=== PATIENT | male | born 1960 | race Caucasian/White ===

== ENCOUNTER 2020-12-19 13:59 | Outpatient (REF) | payer OTHER, SELFPAY | END 2020-12-19 14:00 | disposition home or self-care (01) | LOC: HO.LNP 13:59 | PROVIDERS: Visit Provider Family Medicine | DX: R06.02 Shortness of breath (principal); Z20.822 Contact with and (suspected) exposure to COVID-19 | CPT/HCPCS: U0003; U0005 ==

== ENCOUNTER → 2022-06-10 08:25 | Outpatient (BNVA) | payer OTHER, SELFPAY | PROVIDERS: PCP Family Medicine; Visit Provider Nurse Practitioner Family | DX: Z13.89 Encounter for screening for other disorder (principal) ==

== ENCOUNTER → 2022-07-09 14:37 | Outpatient (REF) | payer OTHER, SELFPAY | LOC: HO.SL 14:37 | PROVIDERS: Visit Provider Nurse Practitioner Family | DX: G47.33 Obstructive sleep apnea (adult) (pediatric) (principal); R06.83 Snoring; Z99.89 Dependence on other enabling machines and devices | CPT/HCPCS: 95806 ==

== ENCOUNTER → 2022-10-07 09:30 | Outpatient (BNVA) | payer OTHER, SELFPAY | PROVIDERS: PCP Family Medicine; Visit Provider Nurse Practitioner Family ==

== ENCOUNTER 2022-12-15 09:20 | Outpatient (AMB) | payer OTHER, SELFPAY ==
[2022-12-15 09:24] VITALS: BP 130/72; PULSE 130; TEMP 36.7; BMI 30.9
--- NOTE | 2022-12-15 09:24 | MHC.OFFWIV ---
Intake Vital Signs 12/15/22 09:24 Height 5 ft 7 in Weight 197 lb 4 oz BMI 30.9 BP 130/72 Blood Pressure Location Lt brachial Position Sitting Pulse 130 H Pulse Source Pulse Oximeter Temp 98.1 F Temp Source Oral Intake Visit Reasons: cough, congestion Intake Note: Patient is here with symptoms of bronchitis since Thursday, took 2 Covid tests, both were negative. Patient Tobacco Use Status: Never used Tobacco Allergies No Known Allergies Allergy (Verified 12/15/22 09:27) Do you need a note to return to daycare/school/sports/work: Yes PFSH Surgical History History of back surgery History of hip surgery Family History Father Cancer Mother COPD (chronic obstructive pulmonary disease) Sister Breast cancer Son Testicular cancer Social History (Updated 06/10/22 @ 08:45 by PAO Reza) Alcohol intake: never Patient Tobacco Use Status: Never used Tobacco Physical Exam Vital Signs: Last Vital Signs Temp 98.1 F 12/15/22 09:24 Pulse 130 H 12/15/22 09:24 BP 130/72 12/15/22 09:24 BMI result Body Mass Index 30.9 Results AMB Rapid Strep AMB Rapid Strep Negative Last Edit by Katerina Day CMA on 12/15/22 09:57 Assessment & Plan Assessment & Plan (1) Cough: Code(s): R05.9 - Cough, unspecified Plan: Patient with a history of asthma presenting with cough sore throat and nasal congestion Enlarged tonsils and patchy exudates in posterior pharynx which can be suspicious for strep though cough is off in exclusive of this Rapid strep negative Likely viral illness and will send testing for COVID/flu/RSV Concerned that this has progressed to a sinus infection so will start him on a Z-Romeo Patient has asthma so will also give him a prednisone taper Continue inhaled medications Will have him stay out of work with a note pending test results. (2) Nasal congestion: Code(s): R09.81 - Nasal congestion Plan: As above (3) Pharyngitis: Code(s): J02.9 - Acute pharyngitis, unspecified Plan: As above Orders: Orders AMB Rapid Strep Screen Today J02.9 - Acute pharyngitis, unspecified, R05.9 - Cough, unspecified, R09.81 - Nasal congestion Medications: New azithromycin (Zithromax Z-Romeo) take 500 mg today (day 1), then 250 mg for 4 days (days 2-5) PO 6 tabs 0RF 5 days prednisone 4 tabs daily for 4 days, 3 tabs daily for 2 days, 2 tabs daily for 2 days, 1 tab daily for 2 days PO daily; 28 tabs 0RF 10 days Coding Level of Care Code Est Pt Level 3 (04924) Diagnoses Cough R05.9 Nasal congestion R09.81 Pharyngitis J02.9
== END 2022-12-15 09:59 | disposition home or self-care (01) ==
PROVIDERS: PCP Family Medicine; Visit Provider Family Medicine
DX: R05.9 Cough, unspecified (principal); R09.81 Nasal congestion; J02.9 Acute pharyngitis, unspecified
CPT/HCPCS: 87880; 99213

== ENCOUNTER 2022-12-15 12:15 | Outpatient (REF) | payer OTHER, SELFPAY ==
[2022-12-15 13:10] LABS: Influenza A PCR NEGATIVE (Negative); Influenza B PCR NEGATIVE (Negative); Resp Syncy Virus RNA Qual PCR NEGATIVE (Negative); SARS COV2 PCR INHOUSE NEGATIVE (Negative)
== END 2022-12-15 12:16 | disposition home or self-care (01) ==
LOC: HO.LNP 12:15
PROVIDERS: Visit Provider Family Medicine
DX: Z20.822 Contact with and (suspected) exposure to COVID-19 (principal); R09.89 Other specified symptoms and signs involving the circulatory and respiratory systems
CPT/HCPCS: 0241U

== ENCOUNTER 2023-06-19 11:20 | Outpatient (AMB) | payer OTHER, SELFPAY ==
--- NOTE | 2023-06-19 11:33 | MHC.OFFVIS ---
Intake Vital Signs 06/19/23 11:37 Height 5 ft 7 in Weight 206 lb 4 oz BMI 32.3 BP 124/70 Blood Pressure Location Lt brachial Position Sitting Pulse 75 Pulse Source Pulse Oximeter Pulse Oximetry (%) 96 Oxygen Delivery Method Room Air Intake Visit Reasons: f/u appt for after CPAP - CONF Intake Note: Patient presents for f/u. Allergies No Known Allergies Allergy (Verified 06/19/23 11:36) HPI HPI Comments History of Present Illness Details 61 y/o male patient presents for follow up of home sleep study. The home sleep result was significant for mild degree of sleep apnea. The AHI was 7/hr and oxygen augustus was 81%. Pt had received a new CPAP. He sleeps well with CPAP, rested and daytime tiredness has improved with using CPAP. The compliance and therapy response report (03/21/23-06/18/23) reviewed with the patient. He is currently on APAP 5-15 cmH2O. The usage days 99% and the average usage hours 7 hours 33 min. The max pressure is 12.4 and the residual AHI was 1.9/hr [facility] Surgical History History of hip surgery History of back surgery Family History Father Cancer Mother COPD (chronic obstructive pulmonary disease) Sister Breast cancer Son Testicular cancer Social History Alcohol intake: never Patient Tobacco Use Status: Never used Tobacco Review of Systems Const All systems reviewed & are unremarkable except as noted in HPI and below ENT Reports Normal hearing present Neuro Reports Normal hearing present Physical Exam Vital Signs: Last Vital Signs Pulse 75 06/19/23 11:37 BP 124/70 06/19/23 11:37 Pulse Ox 96 06/19/23 11:37 Oxygen Delivery Method Room Air 06/19/23 11:37 BMI result Body Mass Index 32.3 Const General: cooperative Nutritional Appearance: obese Orientation/consciousness: patient oriented x3 Neck Other: Bilateral neck muscle tightness. Neck: Yes full ROM and Yes supple Resp Effort & Inspection: normal respiratory effort and able to speak in complete sentences Neuro General: patient oriented x3, gait normal, moves all extremities and no focal motor deficits Cranial nerves: Yes Bilaterally intact EOM present, Yes Normal facial strength present, Yes Midline tongue present, Yes Symmetric palate elevation present, Yes Normal hearing present, Yes Ability to bilaterally rotate head present and Yes Ability to bilaterally elevate shoulders present Cognition (Neuro): normal cognition Gait exam (Neuro): Normal gait present Motor exam (neuro): Pronator motor function not present and no tremor noted Psych Appearance: grossly normal Mental Status: mental status grossly normal Speech and movement: Normal speech and movement present Affect: normal affect Assessment & Plan Assessment & Plan (1) AYSHA on CPAP: Code(s): G47.33 - Obstructive sleep apnea (adult) (pediatric); Z99.89 - Dependence on other enabling machines and devices (2) Snoring: Code(s): R06.83 - Snoring Plan Advised patient to continue to use APAP 5-15 cmH2O as patient experiences good clinical effects, less snoring, sleep quality has improved, and daytime sleepiness resolved. Stressed compliance, use CPAP nighlty and more than 4 hrs. Wt reduction advised. Coding Level of Care Code Est Pt Level 3 (64202) Diagnoses AYSHA on CPAP G47.33; Z99.89 Snoring R06.83
[2023-06-19 11:37] VITALS: BP 124/70; PULSE 75; O2SAT 96; BMI 32.3
== END 2023-06-19 11:52 | disposition home or self-care (01) ==
PROVIDERS: PCP Family Medicine; Visit Provider Nurse Practitioner Family
DX: G47.33 Obstructive sleep apnea (adult) (pediatric) (principal); Z99.89 Dependence on other enabling machines and devices; R06.83 Snoring
CPT/HCPCS: 99213

== ENCOUNTER → 2023-06-19 11:20 | Outpatient (BNVA) | payer OTHER, SELFPAY | PROVIDERS: PCP Family Medicine; Visit Provider Nurse Practitioner Family ==

== ENCOUNTER 2024-06-21 13:02 | Outpatient (AMB) | payer OTHER, SELFPAY ==
[2024-06-21 13:05] VITALS: BP 110/80; PULSE 78; O2SAT 97; BMI 31.3
--- NOTE | 2024-06-21 13:05 | MHC.OFFVIS ---
Vital Signs 06/21/24 13:05 Height 5 ft 7 in Weight 200 lb BMI 31.3 BP 110/80 Blood Pressure Location Rt brachial Position Sitting Pulse 78 Pulse Source Pulse Oximeter Pulse Oximetry (%) 97 Oxygen Delivery Method Room Air Intake Visit Reasons: f/u appt for after CPAP Securities Analyst Required: No Accompanied by: Self / Same As Patient Allergies No Known Allergies Allergy (Verified 06/21/24 13:06) HPI Comments Details: 63 y/o male patient presents for follow up of AYSHA. 07/09/2022 home sleep study showed mild degree of sleep apnea with AHI 7/hr and oxygen augustus was 81%. Previous in-lab sleep study showed moderate obstructive sleep apnea with AHI of 23 per hour, REM AHI 27 per hour, average SpO2 90 5% with O2 augustus 81%. Pt continues to sleep better with his CPAP machine. He uses his CPAP machine regularly, may miss a night here there due to his work schedule. He does clean his CPAP supplies routinely He does use on distilled water in CPAP water reservoir He has a history of benign muscle fasciculations, for which he is followed by neuromuscular specialist at [facility]. He also states that his RLE cramps are attributed to history of low back issues. He states he needs to have bilateral total knee replacement- as his knee pain has been worsening, makes it difficult to walk up stairs at this point. He is followed by [facility]- and plans to make an appointment to discuss. He states he has random episodes of muscle twitching and cramps, which he manages with clonazepam and gabapentin. The symptoms can make him anxious, worried about potential for a neurodegenerative disease- though he knows this is most likely not the case. [facility] [address] [facility], [address] Phone: Old Usage days 28/30 days (93%) >= 4 hours 22 days (73%) < 4 hours 6 days (20%) Usage hours 174 hours 42 minutes Average usage (total days) 5 hours 49 minutes Average usage (days used) 6 hours 14 minutes Median usage (days used) 7 hours 7 minutes Total used hours (value since last reset - 06/20/2024) 3,196 hours AirSense 11 AutoSet Serial number [id number] Mode AutoSet Min Pressure 5 cmH2O Max Pressure 15 cmH2O EPR Off Response Soft Therapy Pressure - cmH2O Median: 7.4 95th percentile: 10.3 Maximum: 11.3 Leaks - L/min Median: 0.0 95th percentile: 3.4 Maximum: 16.8 Events per hour AI: 0.4 HI: 0.3 AHI: 0.7 PFSH Surgical History History of hip surgery History of back surgery Family History Father Cancer Mother COPD (chronic obstructive pulmonary disease) Sister Breast cancer Son Testicular cancer Social History Alcohol intake: never Patient Tobacco Use Status: Never used Tobacco Physical Exam Vital Signs: Last Vital Signs Pulse 78 06/21/24 13:05 BP 110/80 06/21/24 13:05 Pulse Ox 97 06/21/24 13:05 Oxygen Delivery Method Room Air 06/21/24 13:05 BMI result Body Mass Index 31.3 Const General: cooperative and no acute distress Orientation/consciousness: patient oriented x3 Resp Effort & Inspection: normal respiratory effort and able to speak in complete sentences Neuro General: patient oriented x3 Cranial nerves: Yes CN's II-XII intact bilaterally Cognition (Neuro): normal cognition Psych Appearance: grossly normal Mental Status: mental status grossly normal Speech and movement: Normal speech and movement present Affect: normal affect Attitude: cooperative Assessment & Plan Assessment & Plan (1) AYSHA on CPAP: Code(s): G47.33 - Obstructive sleep apnea (adult) (pediatric); Z99.89 - Dependence on other enabling machines and devices Category: Medical (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 Clean CPAP machine and supplies routinely. Change CPAP supplies routinely. Use distilled water in CPAP water reservoir. For nocturnal muscle fasciculation/cramps, he may benefit from trying with a blanket or an OTC RLS type cream. Pt to contact us or respiratory company with any questions or concerns or related CPAP machine . Pt to follow-up in 12 months or sooner prn. Coding Level of Care Code Est Pt Level 3 (06524) Diagnoses AYSHA on CPAP G47.33; Z99.89 Benign fasciculation-cramp syndrome R25.3
--- OUTSIDE RECORDS SUMMARY | 2024-06-21 13:58 | XMS_ITS | Data Portability ---
Author Organization [facility], Main Office Address [address] [facility] [address] [place] [id number] Assessment No assessment recorded. Plan of Treatment Reminders Order Date Submit Date Provider Last Modified By Organization Details Last Modified Time Details Appointments None recorde d. Lab copper, serum or plasma 2013 014 PRATIMA Not available 4 08:13:08 CBC w/ auto diff 2013 014 mdalessandro Not available 4 20:31:53 BMP, serum or plasma 2013 014 mdalessandro Not available 4 20:31:53 magnesi um, free, serum 2013 014 mdalessandro Not available 4 20:31:53 zinc, serum or plasma 2013 014 PRATIMA Not available 4 08:13:09 lead, blood 2013 014 PRATIMA Not available 4 08:11:16 vitamin B12, serum 2013 014 mdalessandro Not available 4 20:31:53 Referral pulmono logist referra l - hx benign cramp-f ascicul ation syndrom e, feeling of shortne ss of breath, o2 sat WNL, spirome try WNL, CXR pending . 2014 015 sridevi Cortez, [address] [place] [address] [place], [address], 5 13:27:26 Procedures None recorde d. Surgeries None recorde d. Imaging x-ray, chest, 2 view - shortne ss of breath, cough x 3 weeks 2014 015 [facility], [address], [place], [address], 5 09:30:42 Medication Orders None recorde d. Patient TargetsNo targets recorded. Patient Instructions Encounter Date Encounter Id Patient Instructions Last Modified By Organization Details Last Modified Time 03/28/2014 [id number] To call or return for worsening or concerns [email or web address] Not available 03/28/2014 16:26:42 Medications were reviewed at this visit and reconciled. Changes in the active medications are reflected in the current medication list and discussed with patient with instructions for follow up as needed. Printed medication list provided to the patient as part of the visit summary.I have reviewed the note and agree with the assessment and plan of care. johnnielessmarshallro Not available 03/28/2014 20:31:53 07/05/2014 [id number] [facility]rometry testing[facility] 07/06/2014 14:35:10 To call or return for worsening or concerns [email or web address] Not available 07/05/2014 11:29:55 Medications were reviewed at this visit and reconciled. Changes in the active medications are reflected in the current medication list and discussed with patient with instructions for follow up as needed. Printed medication list provided to the patient as part of the visit summary. I have reviewed the note and agree with the assessment and plan of care. 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 Referring Physician: Radha Alvarez, Family Medicine, Encounter Date: 07/05/2014 Results Created Date Observation Date Name Description Value Unit Range Abnormal Flag Note LastModifiedBy Organization Detail LastModifiedTime 07/06/19 15 07/05/2014 vern metry testi ng* Spirometry normal normal Not Available In-Offi ce Order Internal Use Only DO Not Attach Compendium DO Not Attach Compendium, Do Not Delete/merge, [id number] 07/05/2014 11:42:12 11/25/20 14 03/28/2014 CBC w/ auto diff WBC 8.8 K/mm3 (4.0-1 1.0) Not Available [facility] [address] [place], [address], 03/28/2014 19:43:34 03/28/20 14 03/28/2014 CBC w/ auto diff RBC 5.56 M/mm3 (4.70- 6.10) Not Available [facility] [address] [place], [address], 03/28/2014 19:43:34 03/28/20 14 03/28/2014 CBC w/ auto diff HGB 16.6 gm/dL (14.0- 18.0) Not Available [facility] [address] [place], [address], 03/28/2014 19:43:34 03/28/20 14 03/28/2014 CBC w/ auto diff HCT 47.1 % (42.0- 52.0) Not Available [facility] [address] [place], [address], 03/28/2014 19:43:34 03/28/20 14 03/28/2014 CBC w/ auto diff MCV 84.7 fL (80.0- 94.0) Not Available [facility] [address] [place], [address], 03/28/2014 19:43:34 03/28/20 14 03/28/2014 CBC w/ auto diff MCH 29.9 pg (27.0- 34.0) Not Available [facility] [address] [place], [address], 03/28/2014 19:43:34 03/28/20 14 03/28/2014 CBC w/ auto diff MCHC 35.2 % (33.0- 37.0) Not Available [facility] [address] [place], [address], 03/28/2014 19:43:34 03/28/20 14 03/28/2014 CBC w/ auto diff plt 203 K/mm3 (150-4 60) Not Available [facility] [address] [place], [address], 03/28/2014 19:43:34 03/28/20 14 03/28/2014 CBC w/ auto diff RDW-SD 39.4 fL (<47.0 ) Not Available [facility] [address] [place], [address], 03/28/2014 19:43:34 03/28/20 14 03/28/2014 CBC w/ auto diff MPV 12.0 fL (9.4-1 2.4) Not Available [facility] [address] [place], [address], 03/28/2014 19:43:34 03/28/20 14 03/28/2014 CBC w/ auto diff automated NRBC 0.0 #/100 _WBC' s Not Available [facility] [address] [place], [address], 03/28/2014 19:43:34 03/28/20 14 03/28/2014 CBC w/ auto diff abs. NRBC 0.0 K/mm3 Not Available [facility] [address] [place], [address], 03/28/2014 19:43:34 03/28/20 14 03/28/2014 CBC w/ auto diff neut # 4.9 K/mm3 (1.3-7 .0) Not Available [facility] [address] [place], [address], 03/28/2014 19:43:34 03/28/20 14 03/28/2014 CBC w/ auto diff lymph # 2.9 K/mm3 (0.8-3 .1) Not Available [facility] [address] [place], [address], 03/28/2014 19:43:34 03/28/20 14 03/28/2014 CBC w/ auto diff mono# 0.8 K/mm3 (0.4-1 .3) Not Available [facility] [address] [place], [address], 03/28/2014 19:43:34 03/28/20 14 03/28/2014 CBC w/ auto diff eo # 0.2 K/mm3 (0.0-0 .4) Not Available [facility] [address] Val[place], [address], 03/28/2014 19:43:34 03/28/20 14 03/28/2014 CBC w/ auto diff baso # 0.1 K/mm3 (0.0-0 .1) Not Available [facility] [address] [place], [address], 03/28/2014 19:43:34 03/28/20 14 03/28/2014 CBC w/ auto diff abs. imm gran 0.0 K/mm3 Not Available [facility] [address] [place], [address], 03/28/2014 19:43:34 03/28/20 14 03/28/2014 CBC w/ auto diff neut 55.0 % (44-76 ) Not Available [facility] [address] [place], [address], 03/28/2014 19:43:34 03/28/20 14 03/28/2014 CBC w/ auto diff lymph 32.7 % (15-43 ) Not Available [facility] [address] [place], [address], 03/28/2014 19:43:34 03/28/20 14 03/28/2014 CBC w/ auto diff monocyte 9.0 % (4.5-1 0.5) Not Available [facility] [address] [place], [address], 03/28/2014 19:43:34 03/28/20 14 03/28/2014 CBC w/ auto diff eo 2.4 % (0-6) Not Available [facility] [address] [place], [address], 03/28/2014 19:43:34 03/28/20 14 03/28/2014 CBC w/ auto diff baso 0.7 % (0-2) Not Available [facility] [address] [place], [address], 03/28/2014 19:43:34 03/28/20 14 03/28/2014 CBC w/ auto diff imm gran 0.2 % (0.0-0 .6) Not Available [facility] [address] [place], [address], 03/28/2014 19:43:34 03/28/20 14 03/28/2014 BMP, serum or plasm a glucose 79 mg/dL (70-99 ) Not Available [facility] [address] [place], [address], 03/28/2014 20:13:08 03/28/20 14 03/28/2014 BMP, serum or plasm a BUN 15 mg/dL (6-20) Not Available [facility] [address] [place], [address], 03/28/2014 20:13:08 03/28/20 14 03/28/2014 BMP, serum or plasm a creatinine 1.1 mg/dL (0.7-1 .2) Not Available [facility] [address] [place], [address], 03/28/2014 20:13:08 03/28/20 14 03/28/2014 BMP, serum or plasm a sodium 141 mmol/ L (133-1 45) Not Available [facility] [address] [place], [address], 03/28/2014 20:13:08 03/28/20 14 03/28/2014 BMP, serum or plasm a potassium 4.5 mmol/ L (3.6-5 .2) Not Available [facility] [address] [place], [address], 03/28/2014 20:13:08 03/28/20 14 03/28/2014 BMP, serum or plasm a chloride 102 mmol/ L (98-10 7) Not Available [facility] [address] [place], [address], 03/28/2014 20:13:08 03/28/20 14 03/28/2014 BMP, serum or plasm a bicarbonate 28 mmol/ L (22-29 ) Not Available [facility] [address] [place], [address], 03/28/2014 20:13:08 03/28/20 14 03/28/2014 BMP, serum or plasm a anion gap 11 (4-17) Not Available [facility] [address] [place] [place], [address], 03/28/2014 20:13:08 03/28/20 14 03/28/2014 BMP, serum or plasm a calcium 9.1 mg/dL (8.6-1 0.5) Not Available [facility] [address] [place], [address], 03/28/2014 20:13:08 03/28/20 14 03/28/2014 BMP, serum or plasm a est GFR non >60 mL/mi n/1.7 3_M2 THE MDRD STUDY 'S ESTIM ATED GFR EQUAT ION HAS NOT BEEN VALID ATED IN CHILD JAYY (<18 YRS), PREGN ANT WOMEN , THE ELDER LY (AGE >70 YRS), RACIA L OR ETHNI C SUBGR OUPS OTHER THAN CAUCA SIANS AND AFRIC AN AMERI CANS. Not Available [facility] [address] [place], [address], 03/28/2014 20:13:08 03/28/20 14 03/28/2014 BMP, serum or plasm a est GFR >60 mL/mi n/1.7 3_M2 THE MDRD STUDY 'S ESTIM ATED GFR EQUAT ION HAS NOT BEEN VALID ATED IN CHILD JAYY (<18 YRS), PREGN ANT WOMEN , THE ELDER LY (AGE >70 YRS), RACIA L OR ETHNI C SUBGR OUPS OTHER THAN CAUCA SIANS AND AFRIC AN AMERI CANS. Not Available [facility] [address] [place], [address], 03/28/2014 20:13:08 03/28/20 14 03/28/2014 magne sium, serum or plasm a magnesium 1.6 mEq/L (1.3-1 .9) Not Available [facility] [address] [place], [address], 03/28/2014 20:13:09 03/28/20 14 03/28/2014 vitam in B12, serum vitamin B12 776 pg/mL (170-8 70) Not Available [facility] [address] [place], [address], 03/28/2014 20:28:09 03/28/20 14 04/01/2014 lead, blood blood lead, adult (>15 yrs) 2 Refer ence range : 0 to 19 Unit: ug/dL (NOTE ) Envir onmen riki Expos ure: WHO Recom menda tion <20 Occup ation al Expos ure: OSHA Lead Std 40 MAGDALENE 30 . Detec tion Limit EQ 1 TEST PERFO RMED BY [facility], MEGA ANEMILEE Y Not Available [facility] [address] [place], [address], 04/01/2014 08:11:15 03/28/20 14 04/01/2014 coppe r, serum or plasm a copper 0.92 Refer ence range : 0.75 to 1.45 Unit: mcg/m L Test Perfo rmed by: [facility] [address] [place] [address] Labor atory Dire tor: Zack sands III, M.D. Not Available [facility] [address] [place], [address], 04/01/2014 08:13:08 03/28/20 14 04/01/2014 zinc, serum or plasm a zinc 0.92 Refer ence range : 0.66 to 1.10 Unit: mcg/m L Test Perfo rmed by: [facility] [address] [place] [address] Labor atory Direc tor: Zack sands III, M.D. Not Available [facility] [address] [place], [address], 04/01/2014 08:13:09 03/20/20 14 05/03/2013 cervi dasha spine min 4 views 1 cervic al spine 5 views dated Decemb er 2012. Histor y: Pain. Findin gs: The verteb ral bodies are normal in height . There is revers al of the normal cervic al lordos is consis tent with muscul ar spasm. There is loss of interv ertebr al disc space height at C5-6 and C6-7 with associ ated osteop hyte format ion. Prever tebral soft tissue s are within normal in its. Facet joints align normal ly and the neural forami na are patent . Impres yony: Degene rative change s at C5-6 and C6-7. Eviden ce of muscul ar spasm. No eviden ce of acute osseou s abnorm ality. Examin ation [id number]. Thank you for candelariai ng me to partic ipate in the care of this patien t. Dictat ed By: Pepe Bean MD Dictat ed Date/T melvin: 11:45 a Review ed By: Pepe Bean MD Signed By: Pepe Bean MD Signed Date/T melvin: 11:45 am Transc ribed By: PATITO Transc ribed Date/T melvin: 11:45 am Patien t Class: Outpat ient build [facility] [address] [place], [address], 04/11/2015 04:10:25 06/13/19 15 imagi ng/di agnos tic resul t No observ ation record ed. [facility] [address] [place] [address], [place], [address], 06/13/2014 14:06:30 07/06/19 15 vern metry testi ng* No observ ation record ed. [email or web address] Not Available 2014 11:53:29 07/06/19 15 07/05/2014 chest 2 views front al and lat PROCED URE: Chest 2 Views Fronta l and Lat INDICA TION: 53 years old Male with dyspne a. COMPAR WILL: Januar y 2010. FINDIN GS: PA and latera l uprigh t views of the chest obtain ed. Lungs and pleura : Lungs are clear. No pleura l effusi ons.No eviden ce of pneumo thorax . Heart, medias tinum and marcial: The cardio medias tinal silhou ette and pulmon alex vascul ature are unrema rkable . Bones and soft tissue s: Mild degene rative endpla te change s unchan ged in the thorac ic spine and acromi oclavi cular joints bilate rally. IMPRES YONY: 1. No eviden ce of acute cardio pulmon alex diseas e. Thank you for candelariai ng me to partic ipate in the care of this patien t. Dictat ed By: Dawit Yang MD Dictat ed Date/T melvin: 1:19 pm Review ed By: Dawit Yang MD Signed By: Dawit Yang MD Signed Date/T melvin: 1:19 pm Transc ribed By: PATITO Transc ribed Date/T melvin: 1:19 pm Patien t Class: Outpat ient build [facility] [address] [place], [address], 04/11/2015 04:10:38 07/22/19 15 07/20/2014 imagi ng/di agnos tic resul t No observ ation record ed. stephanie Not Available 16:40:10 08/19/19 15 08/16/2014 imagi ng/di agnos tic resul t No observ ation record ed. stephanie Reece MD [facility] [address] [place] [address], [address], 08/18/2014 15:11:11 Result Notes None recorded. Problems Name Problem SNOMED Code Status Onset Date Resolution Date Notes Provider Name and Address Organization Details Recorded Time Hypertro phic conditio n of skin 29986619 Completed 201211/22/2013 RECORDED 02/22/20 13 10:42AM BY MARV CRAMER MA, COLIN ON/ADDEN DUM Not Available [facility] 4 14:18:41 Acute pharyngi tis 965831157 Completed 200811/22/2013 RECORDED 07/26/19 09 1:58PM BY DIOGENES MOONATI ON/ADDEN DUM Not Available [facility] 4 14:18:41 Acute sinusiti s 53807884 Completed 200811/22/2013 IMPRESSI ON: NOT IMPROVIN G AND NOW WITH SINUS PRESSURE , PND AND CHILLS, TREAT FOR SINUSITI S; RECORDED 07/26/19 09 1:58PM BY KARLOS TEJADA, COLIN ON/ADDEN DUM Not Available [facility] 4 14:18:41 Anxiety state [id number] Active Alberto Hutton MD [address], [place], [address] , [facility] 5 14:35:10 Patient status finding [id number] Completed 201211/22/2013 RECORDED 01/26/20 13 11:24AM BY MARV CRAMER MA, COLIN ON/ADDEN DUM Not Available [facility] 4 14:18:41 Backache 320001939 Completed 201211/22/2013 STORY: WORKER COMP/TONYA S; RECORDED 02/01/20 13 9:03AM BY JUSTICE BYRD MA, DIOGENESATI ON/ADDEN DUM Not Available [facility] 4 14:18:42 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 CATHLEEN Mathews [address], [place], [address] , [facility] 5 11:37:54 Screenin g for malignan t neoplasm of colon Completed 201111/22/2013 RECORDED 02/05/20 12 7:55AM BY MARV CRAMER MA, ANNOTATI ON/ADDEN DUM Not Available [facility] 4 14:18:42 Contact dermatit is 73883451 Completed 200811/22/2013 RECORDED 01/13/20 09 9:41AM BY DIOGENES ARANDAATI ON/ADDEN DUM Not Available [facility] 4 14:18:42 Cough 70377697 Completed 200911/22/2013 RECORDED 01/18/20 10 2:17PM BY COLIN ARANDA ON/ADDEN DUM Not Available [facility] 4 14:18:42 Dysthymi a 89901448 Active Radha Alvarez, [facility] [address], [place], [address] , [facility] 5 11:37:54 Weakness of face muscles 44018034 Completed 201111/22/2013 RECORDED 02/05/20 12 7:56AM BY MARV CRAMER MA, COLIN ON/ADDEN DUM Not Available [facility] 4 14:18:42 Malaise and fatigue 088907551 Completed 201211/22/2013 RECORDED 05/03/20 13 9:40AM BY MARV CRAMER MA, COLIN ON/ADDEN DUM Not Available [facility] 4 14:18:42 Influenz a vaccine needed [id number] 06 Completed 201211/22/2013 RECORDED 02/01/20 13 9:03AM BY JUSTICE BYRD MA, COLIN ON/ADDEN DUM Not Available [facility] 4 14:18:42 Adult health examinat ion Completed 201211/22/2013 RECORDED 01/26/20 13 11:24AM BY MARV CRAMER MA, COLIN ON/ADDEN DUM Not Available [facility] 4 14:18:42 Hyperlip idemia 00052029 Active Radha Alvarez, [facility] [address], [place], [address] , [facility] 5 11:37:54 Insomnia 214329952 Completed 200811/22/2013 RECORDED 01/13/20 09 9:41AM BY KARLOS RAMIREZ, DIOGENESATI ON/ADDEN DUM Not Available [facility] 4 14:18:42 Laborato ry procedur e performe d 349674125 Completed 201211/22/2013 RECORDED 03/02/20 13 2:15PM BY JUSTICE BYRD MA, DIOGENESATI ON/ADDEN DUM Not Available [facility] 4 14:18:42 Disorder of lacrimal system 28072534 Completed 201111/22/2013 RECORDED 02/05/20 12 7:55AM BY MARV CRAMER MA, COLIN ON/ADDEN DUM Not Available [facility] 4 14:18:42 Low back pain 699511760 Completed 201211/22/2013 RECORDED 01/26/20 13 11:24AM BY MARV CRAMER MA, COLIN ON/ADDEN DUM Not Available [facility] 4 14:18:42 Lyme disease 03179309 Active CATHLEEN Mathews [facility] [address], [place], [address] , [facility] 5 11:37:54 Major depressi on single episode, in partial remissio n 66833769 Active CATHLEEN Mathews [facility] [address], [place], [address] , [facility] 5 11:37:54 Medial epicondy litis 51870012 Completed 201211/22/2013 RECORDED 01/26/20 13 11:24AM BY MARV CRAMER MA, DIOGENESATI ON/ADDEN DUM Not Available [facility] 4 14:18:42 Motion sickness 99125771 Completed 201111/22/2013 RECORDED 02/05/20 12 7:56AM BY MARV CRAMER MA, ANNOTATI ON/ADDEN DUM Not Available [facility] 4 14:18:43 Neck pain 57747789 Active Radha Alvarez, [facility] [address] [facility], [place], [address] , [facility] 5 11:37:54 Administ ration of bacteria l and viral vaccine Completed 200911/22/2013 RECORDED 01/25/20 10 8:56AM BY MARTINEZ GÓMEZ MA, OFFICE VISIT Not Available [facility] 4 14:18:43 Patient status finding [id number] Active Radha Alvarez, [facility] [address], [place], [address] , [facility] 5 11:37:54 Skin sensatio n disturba nce 71924207 Active Radha Alvarez, [facility] [address], [place], [address] , [facility] 5 11:37:54 Pruritic disorder 483702077 Completed 201211/22/2013 IMPRESSI ON: POSSIBLY DUE TO INCREASE D DEPRESSI ON AND ANXIETY. THYROID, BMP, AND PANCREAT IC ENZYMES ALL WNL. WILL CHECK HEPATIC FUNCTION PANEL. ADVISED TO USE ZYRTEC IF ITCHING BECOMES WORSE.; RECORDED 02/08/20 13 9:37AM BY JUSTICE BYRD MA, ANNOTATI ON/ADDEN DUM Not Available [facility] 4 14:18:43 Eruption [id number] Completed 201211/22/2013 IMPRESSI ON: SOLITARY PAPULE. RESASSUR ANCE NOT A LYMPH NODE.; RECORDED 03/22/20 13 7:33AM BY KADIE JACKSON I, DIOGENESATI ON/ADDEN DUM Not Available [facility] 4 14:18:43 Disorder of male genital organ 62416023 Completed 201211/22/2013 RECORDED 02/08/20 13 9:37AM BY JUSTICE BYRD MA, ANNOTATI ON/ADDEN DUM Not Available [facility] 4 14:18:43 Tinea pedis 0376673 Completed 201111/22/2013 RECORDED 02/05/20 12 7:56AM BY MARV CRAMER MA, DIOGENESATI ON/ADDEN DUM Not Available [facility] 4 14:18:43 Increase d frequenc y of urinatio n 475665884 Completed 200811/22/2013 RECORDED 01/13/20 09 9:41AM BY DIOGENES ARANDAATI ON/ADDEN DUM Not Available [facility] 4 14:18:43 Urticari a 059564540 Completed 201211/22/2013 RECORDED 03/02/20 13 2:16PM BY JUSTICE BYRD MA, DIOGENESATI ON/ADDEN DUM Not Available [facility] 4 14:18:43 Viral disease 87126765 Completed 200811/22/2013 RECORDED 01/13/20 09 9:41AM BY DIOGENES ARANDAATI ON/ADDEN DUM Not Available [facility] 4 14:18:43 Abnormal weight loss 992002372 Active Radha Alvarez, [facility] [address] [address], [place], [address] , [facility] 5 11:37:54 Hypertro phic conditio n of skin 70614683 Completed 201212/12/2013 RECORDED 02/22/20 13 10:42AM BY MARV CRAMER MA, COLIN ON/ADDEN DUM Not Available [facility] 4 06:39:19 Acute pharyngi tis 262512521 Completed 200812/12/2013 RECORDED 07/26/19 09 1:58PM BY COLIN MOON ON/ADDEN DUM Not Available [facility] 4 06:39:19 Acute sinusiti s 04001557 Completed 200812/12/2013 IMPRESSI ON: NOT IMPROVIN G AND NOW WITH SINUS PRESSURE , PND AND CHILLS, TREAT FOR SINUSITI S; RECORDED 07/26/19 09 1:58PM BY DIOGENES MOONATI ON/ADDEN DUM Not Available [facility] 4 06:39:19 Patient status finding [id number] Completed 201212/12/2013 RECORDED 01/26/20 13 11:24AM BY MARV CRAMER MA, ANNOTATI ON/ADDEN DUM Not Available [facility] 4 06:39:19 Backache 578145476 Completed 201212/12/2013 STORY: WORKER COMP/TONYA S; RECORDED 02/01/20 13 9:03AM BY JUSTICE BYRD MA, ANNOTATI ON/ADDEN DUM Not Available [facility] 4 06:39:19 Screenin g for malignan t neoplasm of colon Completed 201112/12/2013 RECORDED 02/05/20 12 7:55AM BY MARV CRAMER MA, ANNOTATI ON/ADDEN DUM Not Available [facility] 4 06:39:19 Contact dermatit is 42276149 Completed 200812/12/2013 RECORDED 01/13/20 09 9:41AM BY DIOGENES ARANDAATI ON/ADDEN DUM Not Available [facility] 4 06:39:19 Cough 58844798 Completed 200912/12/2013 RECORDED 01/18/20 10 2:17PM BY DIOGENES ARANDAATI ON/ADDEN DUM Not Available [facility] 4 06:39:19 Weakness of face muscles 59842635 Completed 201112/12/2013 RECORDED 02/05/20 12 7:56AM BY MARV CRAMER MA, ANNOTATI ON/ADDEN DUM Not Available [facility] 4 06:39:19 Malaise and fatigue 794741785 Completed 201212/12/2013 RECORDED 05/03/20 13 9:40AM BY AMRV CRAMER MA, ANNOTATI ON/ADDEN DUM Not Available [facility] 4 06:39:19 Influenz a vaccine needed 77675269091 06 Completed 201212/12/2013 RECORDED 02/01/20 13 9:03AM BY JUSTICE BYRD MA, ANNOTATI ON/ADDEN DUM Not Available [facility] 4 06:39:19 Adult health examinat ion Completed 201212/12/2013 RECORDED 01/26/20 13 11:24AM BY MARV CRAMER MA, ANNOTATI ON/ADDEN DUM Not Available [facility] 4 06:39:19 Insomnia 217585150 Completed 200812/12/2013 RECORDED 01/13/20 09 9:41AM BY KARLOS RAMIREZ, ANNOTATI ON/ADDEN DUM Not Available [facility] 4 06:39:19 Laborato ry procedur e performe d 266872480 Completed 201212/12/2013 RECORDED 03/02/20 13 2:15PM BY JUSTICE BYRD MA, ANNOTATI ON/ADDEN DUM Not Available [facility] 4 06:39:19 Disorder of lacrimal system 00461993 Completed 201112/12/2013 RECORDED 02/05/20 12 7:55AM BY MARV CRAMER MA, ANNOTATI ON/ADDEN DUM Not Available [facility] 4 06:39:19 Low back pain 348172645 Completed 201212/12/2013 RECORDED 01/26/20 13 11:24AM BY MARV CRAMER MA, ANNOTATI ON/ADDEN DUM Not Available [facility] 4 06:39:19 Medial epicondy litis 61468556 Completed 201212/12/2013 RECORDED 01/26/20 13 11:24AM BY MARV CRAMER MA, ANNOTATI ON/ADDEN DUM Not Available [facility] 4 06:39:19 Motion sickness 83221025 Completed 201112/12/2013 RECORDED 02/05/20 12 7:56AM BY MARV CRAMER MA, ANNOTATI ON/ADDEN DUM Not Available [facility] 4 06:39:19 Administ ration of bacteria l and viral vaccine Completed 200912/12/2013 RECORDED 01/25/20 10 8:56AM BY MARTINEZ GÓMEZ MA, OFFICE VISIT Not Available [facility] 4 06:39:19 Pruritic disorder 093059823 Completed 201212/12/2013 IMPRESSI ON: POSSIBLY DUE TO INCREASE D DEPRESSI ON AND ANXIETY. THYROID, BMP, AND PANCREAT IC ENZYMES ALL WNL. WILL CHECK HEPATIC FUNCTION PANEL. ADVISED TO USE ZYRTEC IF ITCHING BECOMES WORSE.; RECORDED 02/08/20 13 9:37AM BY JUSTICE BYRD MA, DIOGENESATI ON/ADDEN DUM Not Available [facility] 4 06:39:19 Eruption [id number] Completed 201212/12/2013 IMPRESSI ON: SOLITARY PAPULE. RESASSUR ANCE NOT A LYMPH NODE.; RECORDED 03/22/20 13 7:33AM BY DIOGENES DALEATI ON/ADDEN DUM Not Available [facility] 4 06:39:19 Disorder of male genital organ 38972309 Completed 201212/12/2013 RECORDED 02/08/20 13 9:37AM BY JUSTICE BYRD MA, ANNOTATI ON/ADDEN DUM Not Available [facility] 4 06:39:19 Tinea pedis 1895878 Completed 201112/12/2013 RECORDED 02/05/20 12 7:56AM BY MARV CRAMER MA, ANNOTATI ON/ADDEN DUM Not Available [facility] 4 06:39:19 Increase d frequenc y of urinatio n [id number] Completed 200812/12/2013 RECORDED 01/13/20 09 9:41AM BY DIOGENES ARANDAATI ON/ADDEN DUM Not Available [facility] 4 06:39:19 Urticari a 715514716 Completed 201212/12/2013 RECORDED 03/02/20 13 2:16PM BY JUSTICE BYRD MA, DIOGENESATI ON/ADDEN DUM Not Available [facility] 4 06:39:19 Viral disease 49153155 Completed 200812/12/2013 RECORDED 01/13/20 09 9:41AM BY DIOGENES ARANDAATI ON/ADDEN DUM Not Available [facility] 4 06:39:19 Metallic taste 54335528 Active Mariya gastelum null, [facility] 4 20:31:53 Pain in right lower limb 815408257 Active Mariya gastelum null, [facility] 4 20:31:53 Muscle twitch 60315789 Active Mariya MorenoSridharJeff gastelum null, [facility] 4 20:31:53 Dyspnea 220728417 Active Alberto Hutton MD [address], [place], [address] , [facility] 5 14:35:10 Benign fascicul ation-cr amp syndrome 314449238 Active Alberto Hutton MD [address], [place], [address] , [facility] 5 14:35:10 Problem Notes None recorded. Procedures Surgical History None recorded. Imaging Results Imaging Date Name Status LastModified by [facility] Details LastModified Time 05/03/2013 cervical spine min 4 views completed [facility] [address] [place], [id number], 04/11/2015 04:10:25 06/13/2014 imaging/diagnos tic result completed [facility] [address] [place] [address], [id number], 06/13/2014 14:06:30 07/05/2014 spirometry testing* completed [email or web address] Information not available 07/05/2014 11:53:29 07/05/2014 chest 2 views frontal and lat completed [facility] [address] [place], [id number], 04/11/2015 04:10:38 07/20/2014 imaging[facility]diagnos [facility]ic [facility] Information not available 07/22/2014 16:40:10 08/16/2014 imaging[facility]diagnos tic [facility] [address] [place] [address], [id number], 08/18/2014 15:11:11 Procedure Notes None recorded. Medical Equipment None Reported. Allergies Allergen ID Allergen Name Allergen Category Reaction Reaction Severity Criticality Documentation Date Start Date Code Code System Note Provider Name and Address Organization Details Recorded Time 9143 No known allergy (situatio n) Not available Not available Not available Not available 11/15/20132011 91894 6003 SNOMED COMME NT: RECOR DED 02/04 7:56A M BY SUSIE BARRETT MA, ANNOT ATION /ADDE NDUM; Not Available [facility] 4 13:26:08 9144 Paxil medicatio n Not available Not available Not available 11/15/20132012 25345 8 RxNorm REACT ION: NAUSE A; COMME NT: RECOR DED 05/03 9:40A M BY SHANNAN MCKEON MA, OFFIC E VISIT ; Not Available [facility] 4 13:26:08 Medications Name Sig Start Date Stop Date Status Note LastModified by Organization Details LastModified Time venlafaxi ne hcl er 75 mg cp24 active Not Available Not Available Not Available pantopraz ole sodium 40 mg tbec active Not Available Not Available Not Available mexiletin e hcl 150 mg caps active Not Available Not Available Not Available bupropion hcl xl 300 mg tb24 active Not Available Not Available Not Available quinine sulfate 324 mg caps active Not Available Not Available Not Available gabapenti n 300 mg caps active Not Available Not Available Not Available ropinirol e hcl 0.25 mg tabs active Not Available Not Available Not Available bupropion hcl 100 mg tabs active Not Available Not Available Not Available nexium 24hr 20 mg cpdr active Not Available Not Available Not Available epipen 2-kassie 0.3 mg/0.3ml soaj active Not Available Not Available Not Available clonazepa m 1 mg tabs active Not Available Not Available Not Available naproxen 500 mg tabs active Not Available Not Available Not Available venlafaxi ne hcl er 150 mg cp24 active Not Available Not Available Not Available fluticaso ne propionat e 50 mcg/act susp active Not Available Not Available Not Available cyclobenz aprine 10 mg tablet AT BEDTIME 06/02 completed RECORDED 08/10/19 14 1:51PM BY MARIYA WARNER MD, MEDICATI ON AUTO-STEPHANIE CTIVATIO N; Not Available Not Available Not Available gabapenti n 600 mg tablet active Not Available Not Available Not Available doxycycli ne hyclate 100 mg capsule active Not Available Not Available Not Available cetirizin e 10 mg tablet DAILY 03/23 completed RECORDED 03/24/20 13 4:24PM BY JUSTICE BYRD MA, MEDICATI ON AUTO-STEPHANIE CTIVATIO N; Not Available Not Available Not Available azithromy marnie 250 mg tablet active Not Available Not Available No t Available valacyclo vir 1 gram tablet EVERY TWELVE HOURS 05/24 completed RECORDED 05/27/19 11 10:19AM BY MARIYA WARNER MD, MEDICATI ON AUTO-STEPHANIE CTIVATIO N; Not Available Not Available Not Available prednison e 20 mg tablet DAILY 06/02 completed RECORDED 06/07/19 11 1:33PM BY MARIYA WARNER MD, MEDICATI ON AUTO-STEPHANIE CTIVATIO N; Not Available Not Available Not Available clonazepa m 0.5 mg tablet active Not Available Not Available Not Available sertralin e 100 mg tablet active Not Available Not Available Not Available clonazepa m 1 mg tablet active Not Available Not Available Not Available sildenafi l 100 mg tablet DAILY NEEDED 2012 active RECORDED 02/08/20 13 5:28PM BY MARIYA WARNER MD, REFILL REQUEST; Not Available Not Available Not Available pantopraz ole 40 mg tablet,de layed release active Not Available Not Available Not Available carbamaze pine 100 mg chewable tablet active Not Available Not Available Not Available polymyxin B sulfate 10,000 unit-trim ethoprim 1 mg/mL eye drops FOUR TIMES DAILY 05/30 completed RECORDED 06/07/19 11 1:33PM BY MARIYA WARNER MD, MEDICATI ON AUTO-STEPHANIE CTIVATIO N; Not Available Not Available Not Available gabapenti n 300 mg capsule Take 3 capsules every day by oral route for 30 days. active Not Available Not Available No t Available Iophen C-NR 10 mg-100 mg/5 mL oral liquid active Not Available Not Available Not Available fluvoxami ne 50 mg tablet active Not Available Not Available Not Available gabapenti n 100 mg capsule active Not Available Not Available Not Available scopolami ne 1 mg over 3 days transderm al patch Q 72 HOURS 04/18 completed RECORDED 04/29/20 11 10:39AM BY MARIYA WARNER MD, MEDICATI ON AUTO-STEPHANIE CTIVATIO N; Not Available Not Available Not Available fluticaso ne propionat e 50 mcg/actua tion nasal spray,jayshree pension active Not Available Not Available Not Available sertralin e 50 mg tablet QD active Not Available Not Available Not Available naproxen 500 mg tablet active Not Available Not Available Not Available quinine 324 mg capsule active Not Available Not Available Not Available Amoxil BID 04/02 completed RECORDED 06/21/19 09 10:17AM BY PAGE Mejia MD, MEDICATI ON AUTO-STEPHANIE CTIVATIO N; Not Available Not Available Not Available Fish Oil BID 09/24 completed RECORDED 12/15/19 07 3:34PM BY MARIYA WARNER MD, MEDICATI ON AUTO-STEPHANIE CTIVATIO N; Not Available Not Available Not Available halobetas ol propionat e DAILY 04/02 completed RECORDED 05/18/19 11 10:52AM BY MARIYA WARNER MD, MEDICATI ON AUTO-STEPHANIE CTIVATIO N; Not Available Not Available Not Available Vitals Date Recorded Oxygen saturation Oxygen saturation in Arterial blood by Pulse oximetry Body weight Heart rate Body mass index (BMI) Body height Body temperature Systolic blood pressure Diastolic blood pressure Provider Name and Address Organization Details Last Updated DateTime 4 99 % 99 % 44962.2 8926 g 65 /min 35.4 kg/m2 159.385 cm 98.7 [degF] 127 mm[Hg] 86 mm[Hg] Shannen Pugh MA [facility] 4 15:59:25 Date Recorded Oxygen saturation Oxygen saturation in Arterial blood by Pulse oximetry Body weight Body mass index (BMI) Body height Body temperature Systolic blood pressure Diastolic blood pressure Provider Name and Address Organization Details Last Updated DateTime 5 95 % 95 % 51691.2 8926 g 35.4 kg/m2 159.385 cm 97.7 [degF] 123 mm[Hg] 86 mm[Hg] Shannen Pugh MA [facility] 5 11:26:28 Date Recorded Heart rate Oxygen saturation Oxygen saturation in Arterial blood by Pulse oximetry Heart rate Provider Name and Address Organization Details Last Updated DateTime 07/05/2014 77 /min 97 % 97 % 87 /min Radha Alvarez, [facility] [address], [place], [address] , [facility] 07/05/2014 11:52:57 Social History None recorded. Functional Status None recorded. Mental Status None recorded. Family History Nothing Reported. Medical History No medical history recorded. Immunizations Vaccine Type Date Status Note Provider Nam e and Address Organization Details Recorded Time Influenza, split virus, trivalent, PF 4 completed Not Available [facility] 05/21/2019 02:21:58 Td (adult), 2 Lf tetanus toxoid, preservative free, adsorbed 0 completed Not Available [facility] 11/15/2013 14:07:51 Influenza, split virus, trivalent, preservative 8 completed Not Available [facility] 11/15/2013 14:07:51 Influenza, split virus, trivalent, preservative 9 completed Not Available [facility] 11/15/2013 14:07:51 Tdap 0 completed Not Available [facility] 11/15/2013 14:07:51 Influenza, split virus, trivalent, preservative 0 completed Not Available [facility] 11/15/2013 14:07:51 Influenza, split virus, trivalent, preservative 1 completed Not Available [facility] 11/15/2013 14:07:51 influenza, seasonal, intradermal, preservative free 2 completed Not Available [facility] 11/15/2013 14:07:51 influenza, seasonal, intradermal, preservative free 3 completed Not Available [facility] 11/15/2013 14:07:51 Past Encounters Encounter ID Performer Location Encounter Start Date Encounter Closed Date Diagnosis/Indication Diagnosis SNOMED-CT Code Diagnosis ICD10 Code Diagnosis Note [id number] [address] [address] [address] [place] [address] 08/25/2006 00:00:00 [id number] [facility] [address] [facility] [place] [address] 03/03/2008 00:00:00 [id number] [facility] [facility] [address] [facility] [place] [address] 03/23/2008 00:00:00 [id number] [facility] [facility] [address] [place] [address] 07/25/2008 00:00:00 [id number] [facility] [facility] [address] [facility] [place] [address] 11/14/2008 00:00:00 [id number] [facility] [facility] [address] [facility] [place] [address] 01/12/2009 00:00:00 [id number] [facility] [facility] [address] [facility] [place] [address] 03/08/2009 00:00:00 [id number] [facility] [facility] [address] [facility] [place] [address] 01/24/2010 00:00:00 [id number] [facility] [facility] [address] [facility] [place] [address] 05/18/2010 00:00:00 [id number] [facility] [facility] [address] [facility] [place] [address] 05/23/2010 00:00:00 [id number] [facility] [facility] [address] [facility] [place] [address] 08/29/2010 00:00:00 [id number] [facility] [facility] [address] [facility] [place] [address] 01/24/2011 00:00:00 [id number] [facility] [facility] [address] [facility] [place], [place] [address] 02/05/2012 00:00:00 [id number] [facility] [address] [facility] [place], [place] [address] 01/25/2013 00:00:00 [id number] [facility] [address] [facility] [place], [place] [address] 02/01/2013 00:00:00 [id number] [facility] [facility] [address] [facility] [place], [place] [address] 02/07/2013 00:00:00 [id number] [facility] [facility] [address] [facility] [place], [place] [address] 02/21/2013 00:00:00 [id number] [facility] [facility] [address] [facility] [place], [place] [address] 03/02/2013 00:00:00 [id number] [facility] [facility] [address] [facility] [place], [place] [address] 03/22/2013 00:00:00 [id number] [facility] [facility] [address] [facility] [place], [place] [address] 05/03/2013 00:00:00 [id number] Main Office [address] [facility] [address] [place], [place] [address] 03/28/2014 15:48:27 03/28/2014 16:36:46 Needs influenza immunization 889007981 Metallic taste 17259043 Metallic taste in mouth x 3-4 weeks, last lab WNL in 12/2013. He is not on any medication s which could cause this. Will repeat labs today, he would like to have a vitamin b12 done. 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 [id number] CATHLEEN Mathews Main Office [address] [facility] [address] [place], [place] [address] 07/05/2014 11:10:55 07/05/2014 11:54:47 Dyspnea 664200796 Sx since April per pt, he denies chest pain, palpitatio ns, lightheade dness. Exam unremarkab le, normal VS including pulse ox 97% RA, LS CTA bilaterall y. Normal spirometry . Will get CXR and refer to pulm. Please return for any worsening sx. 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 Health Concerns Section Related Observation LastModified by Organization Detai ls LastModified Time None Recorded Concern Status LastModified by Organization Details LastModified Time None Recorded Advance Directives Directive None Recorded Payers Encounter Date Sequence Insurance Name Policy Number Policy Heck Covered Member ID Heck Member ID Guarantor Name 03/28/2014 1 [facility] [id number] Aaron Olguin [id number] Aaron Olguin 07/05/2014 1 [facility] [id number] Aaron Olguin [id number] Aaron Olguin
== END 2024-06-21 13:35 | disposition home or self-care (01) ==
PROVIDERS: PCP Family Medicine; Visit Provider Nurse Practitioner Family
DX: G47.33 Obstructive sleep apnea (adult) (pediatric) (principal); Z99.89 Dependence on other enabling machines and devices; R25.3 Fasciculation
CPT/HCPCS: 99213

== ENCOUNTER → 2024-06-21 13:02 | Outpatient (BNVA) | payer OTHER, SELFPAY | PROVIDERS: PCP Family Medicine; Visit Provider Nurse Practitioner Family ==